=== PATIENT | male | born 1985 | race Caucasian/White ===

== ENCOUNTER 2017-07-23 17:39 | Emergency (ER) | payer BC, OTHER ==
[~2017-07-23] VITALS: Ht 170.2 cm; Wt 115.0 kg
[2017-07-23] MEDS ORDERED: morphine SULFATE 10 MG/ML, 1ML ONE (18:10)
[2017-07-23] MEDS ORDERED: ONDANSETRON 2MG/ML, 2ML ONE (18:10)
[2017-07-23 18:21] VITALS: BP 128/89
[2017-07-23] MEDS ORDERED: ONDANSETRON 2MG/ML, 2ML IVPush ONE (18:30)
[2017-07-23] MEDS ORDERED: MORPHINE SULFATE 4 MG/ML, 1ML IVPush PRN (18:30)
== END 2017-07-23 18:26 | disposition short-term general hospital (02) ==
LOC: ED 18:12
DX: R10.84 Generalized abdominal pain (principal)
CPT/HCPCS: 71045; 72170; 73552; 96374; 96375; 99284; J2405

== ENCOUNTER 2020-05-13 19:45 | Emergency (ER) | payer BC, MEDICAID ==
[~2020-05-13] VITALS: Ht 170.2 cm; Wt 95.2 kg
[2020-05-13 21:04] LABS: BASOPHILS % (AUTO) 0 % (0-1); EOSINOPHILS % (AUTO) 6 % (1-7); LYMPHOCYTES % (AUTO) 24 % (22-44); MEAN CORPUSCULAR HEMOGLOBIN 31.4 pg (27.5-34.5); MEAN CORPUSCULAR HGB CONC 34.5 g/dL (33.2-36.2); MEAN PLATELET VOLUME 8.6 fL (7.4-10.4); MONOCYTES % (AUTO) 10 % (2-9); NEUTROPHILS % (AUTO) 59 % (42-75); PLATELET COUNT 208 x10^3/uL (130-400); RED CELL DISTRIBUTION WIDTH 13.6 % (9.4-14.8)
[2020-05-13 21:06] LABS: MD NO
[2020-05-13 21:15] LABS: ALBUMIN 3.3 g/dL (3.4-5.0); ANION GAP 4 mmol/L (5-15); CALCIUM 8.6 mg/dL (8.5-10.1); CHLORIDE 111 mmol/L (98-107)
[2020-05-13 21:18] LABS: ALANINE AMINOTRANSFERASE 30 U/L (12-78); ALKALINE PHOSPHATASE 68 U/L (45-117); BILIRUBIN,TOTAL 0.4 mg/dL (0.2-1.0); CREATININE 0.87 mg/dL (0.7-1.3); TOTAL PROTEIN 6.8 g/dL (6.4-8.2)
--- NOTE | 2020-05-13 21:35 | NUR ---
LATE ENTRY DUE TO PT CARE. PT STATES HE HAS EPIGASTRIC PAIN THAT RADIATES FROM THROAT TO ABD FOR 2 DAYS . PT N/V. PT ALSO HAS INFECTION OF GROIN AND SUPRAPUBIC AREA X 1 MONTH. PT SAYS HE WAS SEEN AT [facility] 2 DAYS AGO FOR SAME. SAYS [facility] GAVE HIM ABX FOR INFECTION BUT HE NEVER WENT AND GOT IT. VSS. PT RESTING IN BED.
[2020-05-13 22:23] VITALS: BP 156/90
== END 2020-05-13 22:27 | disposition home or self-care (01) ==
LOC: ED 22:20
DX: L03.311 Cellulitis of abdominal wall (principal); R10.13 Epigastric pain; R05 Cough; L01.01 Non-bullous impetigo; R94.31 Abnormal electrocardiogram [ECG] [EKG]
CPT/HCPCS: 36415; 71045; 80053; 83690; 85025; 93005; 99285